=== PATIENT | female | born 2000 | race Two or more races ===

== ENCOUNTER 2024-07-18 16:29 | Emergency (ER) | payer OTHER ==
[~2024-07-18] VITALS: Ht 167.6 cm; Wt 98.1 kg
[2024-07-18 17:15] LABS: Basophils # (auto) 0.1 10 ^3/uL (0-0.2); Basophils % (auto) 0.5 % (0.0-2.0); Eosinophils # (auto) 0.3 10 ^3/uL (0-0.8); Eosinophils % (auto) 2.8 % (0.0-7.0); Hematocrit 41.8 % (36.0-46.0); Hemoglobin 14.4 g/dL (12.2-16.2); Lymphocytes # (auto) 2.8 10 ^3/uL (0.4-5.4); Lymphocytes % (auto) 24.9 % (10.0-50.0); Mean Corpuscular Hgb Conc. 34.4 g/dL (32.0-36.0); Monocytes # (auto) 0.8 10 ^3/uL (0-1.3); Monocytes % (auto) 6.9 % (0.0-12.0); Neutrophils # (auto) 7.3 10 ^3/uL (1.6-8.6); Neutrophils % (auto) 64.9 % (37.0-80.0); Nucleated Red Blood Cells % 0.1 %; Platelet Count (auto) 289 10^3/uL (140-450); Red Blood Cells 4.49 10^6/uL (4.0-5.20); Red Cell Distribution Width 12.3 % (11.8-14.3); White Blood Cell 11.2 10^3/uL (4.4-10.8)
[2024-07-18 17:26] LABS: Urine Bacteria FEW /hpf (None Seen); Urine Blood 3+ /uL (Negative); Urine Clarity Clear (Clear); Urine Color Yellow (Yellow); Urine Hyaline Cast FEW /lpf (0 - 2); Urine Mucus FEW (None Seen); Urine Protein, UAD TRACE (Negative); Urine Urobilinogen Normal (Negative); Urine WBC 5 /hpf (0 - 5); Urine pH 5.5 (5.0-9.0)
[2024-07-18 17:31] LABS: Alanine Aminotransferase 44 U/L (7-40); Albumin 4.9 g/dL (3.2-4.8); Alkaline Phosphatase 74 U/L (46-116); Anion Gap 8 (5-15); Aspartate Aminotransferase 23 U/L (13-40); BUN/Creatinine Ratio 10.1 (10.0-20.0); Bilirubin, Total 0.4 mg/dL (0.2-1.0); Blood Urea Nitrogen 8 mg/dL (9-23); Carbon Dioxide 24 mmol/L (20-31); Chloride 106 mmol/L (98-107); Glucose 79 mg/dL (74-106); Potassium 3.8 mmol/L (3.5-5.1); Sodium 138 mmol/L (136-145); Total Protein 7.9 g/dL (5.7-8.2)
[2024-07-18] MEDS ORDERED: CEPH500C PO (20:47)
[2024-07-18 20:53] VITALS: BP 130/81; PULSE 89; RESP 18; TEMP 97.5; O2SAT 98
== END 2024-07-18 21:01 | disposition home or self-care (01) ==
LOC: ER 16:29
DX: O20.9 Hemorrhage in early pregnancy, unspecified (principal); R10.2 Pelvic and perineal pain; O23.41 Unspecified infection of urinary tract in pregnancy, first trimester; N39.0 Urinary tract infection, site not specified; Z90.49 Acquired absence of other specified parts of digestive tract; Z3A.01 Less than 8 weeks gestation of pregnancy
CPT/HCPCS: 36415; 76801; 76817; 80053; 81001; 84484; 84702; 85025; 86850; 86900; 86901

== ENCOUNTER 2025-02-11 20:42 | Observation (INO) | payer OTHER ==
[~2025-02-11] VITALS: Ht 167.6 cm; Wt 104.3 kg
[~2025-02-11 20:42] MED LIST: CEPH500C PO
[2025-02-11] MEDS ORDERED: LACTATED RINGER'S 1,000 ML IV SCH (21:30)
[2025-02-11 21:47] LABS: Urine Bacteria FEW /hpf (None Seen); Urine Blood Negative /uL (Negative); Urine Budding Yeast OCCASIONAL /hpf (None Seen); Urine Clarity Clear (Clear); Urine Color Light-Yellow (Yellow); Urine Protein, UAD Negative (Negative); Urine Specific Gravity 1.012 (1.001-1.035); Urine Squamous Epithelial Cell FEW /hpf (<5); Urine Urobilinogen Normal (Negative); Urine WBC < 1 /HPF (0-5)
[2025-02-11 21:52] VITALS: TEMP 100.5
[2025-02-11] MEDS: ACETAMINOPHEN 325 MG TAB PO ONE (21:52)
[2025-02-11] MEDS: NIFEdipine 10 MG CAP PO ONE (21:58)
[2025-02-11] MEDS: LACTATED RINGER'S 1,000 ML IV ONE (21:58)
[2025-02-11] MEDS ORDERED: PREN-129 OR (22:03)
[2025-02-11 22:14] LABS: Basophils # (auto) 0 10 ^3/uL (0-0.2); Basophils % (auto) 0.1 % (0.0-2.0); Eosinophils # (auto) 0 10 ^3/uL (0-0.8); Eosinophils % (auto) 0.3 % (0.0-7.0); Hematocrit 35.3 % (36.0-46.0); Mean Corpuscular Hemoglobin 31.1 pg (28.0-32.0); Mean Corpuscular Hgb Conc. 33.9 g/dL (32.0-36.0); Mean Corpuscular Volume 91.8 fL (80.0-100.0); Monocytes # (auto) 0.8 10 ^3/uL (0-1.3); Monocytes % (auto) 6.1 % (0.0-12.0); Neutrophils % (auto) 86.5 % (37.0-80.0); Platelet Count (auto) 230 10^3/uL (140-450); Red Blood Cells 3.84 10^6/uL (4.0-5.20); Red Cell Distribution Width 12.6 % (11.8-14.3); White Blood Cell 13.9 10^3/uL (4.4-10.8)
[2025-02-11 22:24] LABS: Anion Gap 12 (5-15); Aspartate Aminotransferase 14 U/L (13-40); Calcium 9.6 mg/dL (8.7-10.4); Chloride 106 mmol/L (98-107); Glucose 92 mg/dL (74-106); Potassium 3.8 mmol/L (3.5-5.1); Sodium 138 mmol/L (136-145); Total Protein 6.8 g/dL (5.7-8.2)
[2025-02-11 22:25] LABS: Bilirubin, Total 0.5 mg/dL (0.2-1.0)
[2025-02-11 22:53] LABS: Amphetamine Screen, Urine Neg (NEGATIVE); Barbiturate Scree,Urine Neg (NEGATIVE); Benzodiazephine Screen, Urine Neg (NEGATIVE); Cannabinoid Screen, Urine Neg (NEGATIVE); Cocaine Screen, Urine Neg (NEGATIVE); Opiate Scree,Urine Neg (NEGATIVE); Phencyclidine Screen, Urine Neg (NEGATIVE)
[2025-02-11 22:54] LABS: Alanine Aminotransferase 9 U/L (7-40); Alkaline Phosphatase 143 U/L (46-116); Blood Urea Nitrogen < 5 mg/dL (9-23); Carbon Dioxide 20 mmol/L (20-31)
[2025-02-11 23:09] LABS: Vaginal Trichomonas Not Present
[2025-02-11 23:10] LABS: Vaginal Bacteria Few; Vaginal Clue Cells None Seen; Vaginal Epithelial Cells Few
[2025-02-11] MEDS: BETAMETHASONE ACET (30mg/5ml) 5ml Vial 6mg/ml IM ONE (23:25)
--- NOTE | 2025-02-11 23:36 | DVHDS2 ---
Physician Discharge Progress N Final Diagnosis: PTL Secondary Diagnosis: UTI mild right-sided hydronephrosis Problems List: (1) Hydronephrosis of right kidney (2) UTI in (3) labor in third trimester without delivery (4) Previous section Operations or Procedures: Operations or Procedures S: 24yo IUP@34.3wks presents to OB triage with c/o UCs/vaginal press ure/chest tightness. Denies LOF/VB/KILLIAN/vision changes/RUQ pain. Endorses +FM. PNC with Dr. Petty Emmanuel in [place], uncomplicated. Just moved here but plans on continuing care in [place]. Plans to have repeat C/S. OB Hx: #1 - P c/s for FTP #2 - current PMH: denies PSH: C/S and cholestectomy FMH: denies PSYCH: denies anxiety or depression O: VSS except maternal temp and tachycardia NST reactive (FHR tachycardic initially but was normal prior to D/C) TOCO: regular initially but after LR IV fluid bolus and procardia 30mg PO, no UCs noted on EFM and pt declines UCs. SVE attempted by RN but pt declined midway through exam, not imminent per RN. Pt declined second SVE by CNM. Tylenol PO given COVID/flu testing declined EKG declined (pt states chest tightness went away) Celestone declined No CVA tenderness bilaterally Blood culture collected Laboratory Tests Test 02/11/25 21:33 02/11/25 21:35 02/11/25 22:00 Range/Units White Blood Count 13.9 H 4.4-10.8 10^3/uL Red Blood Count 3.84 L 4.0-5.20 10^6/uL Hemoglobin 12.0 L 12.2-16.2 g/dL Hematocrit 35.3 L 36.0-46.0 % Mean Corpuscular Volume 91.8 80.0-100.0 fL Mean Corpuscular Hemoglobin 31.1 28.0-32.0 pg Mean Corpuscular Hemoglobin Concent 33.9 32.0-36.0 g/dL Red Cell Distribution Width 12.6 11.8-14.3 % Platelet Count 230 140-450 10^3/uL Mean Platelet Volume 7.9 6.9-10.8 fL Neutrophils (%) (Auto) 86.5 H 37.0-80.0 % Lymphocytes (%) (Auto) 7.0 L 10.0-50.0 % Monocytes (%) (Auto) 6.1 0.0-12.0 % Eosinophils (%) (Auto) 0.3 0.0-7.0 % Basophils (%) (Auto) 0.1 0.0-2.0 % Neutrophils # (Auto) 12.0 H 1.6-8.6 10 ^3/uL Lymphocytes # (Auto) 1.0 0.4-5.4 10 ^3/uL Monocytes # (Auto) 0.8 0-1.3 10 ^3/uL Eosinophils # (Auto) 0 0-0.8 10 ^3/uL Basophils # (Auto) 0 0-0.2 10 ^3/uL Nucleated Red Blood Cells 0.0 % Sodium Level 138 136-145 mmol/L Potassium Level 3.8 3.5-5.1 mmol/L Chloride Level 106 98-107 mmol/L Carbon Dioxide Level 20 20-31 mmol/L Anion Gap 12 5-15 Blood Urea Nitrogen < 5 L 9-23 mg/dL Creatinine 0.50 L 0.550-1.02 mg/dL Glomerular Filtration Rate Calc 133 >90 mL/min BUN/Creatinine Ratio 10.0 10.0-20.0 Serum Glucose 92 74-106 mg/dL Lactic Acid Level 1.4 0.4-2.0 mmol/L Calcium Level 9.6 8.7-10.4 mg/dL Total Bilirubin 0.5 0.2-1.0 mg/dL Aspartate Amino Transferase (AST) 14 13-40 U/L Alanine Aminotransferase (ALT) 9 7-40 U/L Alkaline Phosphatase 143 H 46-116 U/L Total Protein 6.8 5.7-8.2 g/dL Albumin 4.0 3.2-4.8 g/dL Urine Color Light-yellow Yellow Urine Clarity Clear Clear Urine pH 7.0 5.0-9.0 Urine Specific [place] 1.012 1.001-1.035 Urine Protein Negative Negative Urine Ketones 2+ H Negative Urine Blood Negative Negative /uL Urine Nitrite Negative Negative Urine Bilirubin Negative Negative Urine Urobilinogen Normal Negative mg/dL Urine Leukocyte Esterase Negative Negative /uL Urine RBC 1 0 - 4 /hpf Urine Microscopic WBC < 1 0-5 /HPF Urine Squamous Epithelial Cells Few <5 /hpf Urine Bacteria Few H None Seen /hpf Urine Yeast (Budding) Occasional None Seen /hpf Urine Glucose Normal Normal mg/dL Urine Opiates Screen Neg NEGATIVE Urine Fentanyl Screen Neg NEGATIVE Urine Barbiturates Screen Neg NEGATIVE Urine Phencyclidine Screen Neg NEGATIVE Urine Amphetamines Screen Neg NEGATIVE Urine Benzodiazepines Screen Neg NEGATIVE Urine Cocaine Screen Neg NEGATIVE Urine Cannabinoids Screen Neg NEGATIVE Vaginal WBC (Wet Prep) Rare Vaginal RBC (Wet Prep) None seen Vaginal Epithelial Cells (Wet Prep) Few Vaginal Bacteria (Wet Prep) Few Vaginal Trichomonas (Wet Prep) Not present Vaginal Yeast (Wet Prep) None seen Vaginal Clue Cells (Wet Prep) None seen Vital Signs Date Time Temp Pulse Resp B/P (MAP) Pulse Ox O2 Delivery O2 Flow Rate FiO2 02/11/25 21:58 132/61 02/11/25 21:52 100.5 A: 24yo IUP@34.3wks PTL UTI mild right-sided hydronephrosis P: D/C home Rx sent to pharmacy [facility]/PTL/preE precautions reviewed Dr. Vann consulted, agrees with POC Other Interventions Other Interventions [place] [address] Ph: [phone] DIAGNOSTIC IMAGING Diagnostic Imaging Report : [id number] Signed PATIENT: CORY DE LA TORRECCT: [id number] UNIT: [id number] : 2000 LOC: [facility] ROOM / BED: TRIAGE1 / A AGE / SEX: 24 / F ADM STATUS: ADM IN SERVICE 26 ORDERING PHYSICIAN: FLORENCIA KILGORE CNM PROCEDURE(s): OBUS - OB ULTRASOUND COMP GTR 14 WKS REASON: ABD PAIN ORDER NUMBER(s): [id number], ACCESSION NUMBER(s): [id number] LIMITED OB ULTRASOUND > 14 WKS: HISTORY: ABD PAIN TECHNIQUE: Multiple real-time grayscale images of the gravid uterus with duplex Doppler color flow and M-mode spectral analysis. Findings/ IMPRESSION: Single live intrauterine in cephalic position. The placenta is posterior grade 3. The cervix measures 3.6 cm and appears closed. Average ultrasound age 36 weeks 0 days with expected due date of March 11, 2025. Estimated weight of 2791 g. CHARY of 12.7 cm. heart rate of 178 beats per minute. Candy Puller notes good movement. ATED BY: JULIANNE JASSO DO DICTATED DATE/TIME: 02/12/2525 SIGNED BY: JULIANNE JASSO DO SIGNED DATE/TIME: 02/12/2525 CC: Consultations: Consultations [place] [address] Ph: [phone] DIAGNOSTIC IMAGING Diagnostic Imaging Report : [id number] Signed PATIENT: CORY DE LA TORRECCT: [id number] UNIT: [id number] : 2000 LOC: [facility] ROOM / BED: TRIAGE1 / A AGE / SEX: 24 / F ADM STATUS: ADM IN SERVICE 23 ORDERING PHYSICIAN: FLORENCIA KILGORE CNM PROCEDURE(s): ABDC - ABDOMEN COMPLETE SONOGRAM REASON: ABD PAIN ORDER NUMBER(s): [id number], ACCESSION NUMBER(s): [id number] INDICATION: ABD PAIN TECHNIQUE: Multiple real-time sonographic images of the abdomen were obtained. COMPARISON: None Findings/impression: The liver measures 15.6 cm craniocaudal with normal echotexture. Status post cholecystectomy. Pancreas not visualized. Right kidney measures 11.6 cm. There is mild right-sided hydronephrosis. Left kidney measures 12 cm. Spleen measures 13.9 cm. ATED BY: JULIANNE JASSO DO DICTATED DATE/TIME: 02/12/2526 SIGNED BY: JULIANNE JASSO DO SIGNED DATE/TIME: 02/12/2526 CC: Condition on Discharge: Stable Disposition: Home Discharge Instructions: Diet: Regular Activity: See Comment Activity comment: pelvic rest Medications: see med list Follow Up Care: Specialist: f/u with primary OB scheduled on 02/19/25 Discharge Statement: "Patient was advised to return to the ER or call 911 if any headaches, dizziness, shortness of breath, chest pain, abdominal pain, bleeding, fevers, or worsening of medical condition. Patient was counseled about treatment plan, medications, possible side effects, patientverbalized understanding. All questions were answered to the best of my ability. This discharge took greater then 30 minutes in planning, reviewing documentatio n, counseling the patient, and discussing with other team members." Visit Coding OBGYN Date of Service: February 11, 2025 Billing Provider: FLORENCIA KILGORE CNM MARKETING SYSTEMS MANAGER Common Visit Codes: [id number] OBS CARE (HIGH) FLORENCIA KILGORE CNM February 11, 2025 23:36
[2025-02-12] MEDS ORDERED: CEPH500C PO (00:07)
[2025-02-12] MEDS ORDERED: NIFE10CA52 PO (00:07)
--- NOTE | 2025-02-12 00:28 | DVH ---
LIMITED OB ULTRASOUND > 14 WKS: HISTORY: ABD PAIN TECHNIQUE: Multiple real-time grayscale images of the gravid uterus with duplex Doppler color flow an d M-mode spectral analysis. Findings/ IMPRESSION: Single live intrauterine in cephalic position. The placenta is posterior grade 3. The cerv ix measures 3.6 cm and appears closed. Average ultrasound age 36 weeks 0 days with expected due date of March 11, 2025. Estimated weight of 2791 g. CHARY of 12.7 cm. heart rate of 178 beats p er minute. Electrical Development Engineer notes good movement.
--- NOTE | 2025-02-12 00:29 | DVH ---
INDICATION: ABD PAIN TECHNIQUE: Multiple real-time sonographic images of the abdomen were obtained. COMPARISON: None Findings/impression: The liver measures 15.6 cm craniocaudal with normal echotexture. Status post cho lecystectomy. Pancreas not visualized. Right kidney measures 11.6 cm. There is mild right-sided hydr onephrosis. Left kidney measures 12 cm. Spleen measures 13.9 cm.
== END 2025-02-12 00:32 | disposition home or self-care (01) ==
LOC: LDRP 20:42
PROVIDERS: ADMIT Obstetrics & Gynecology; ATTEND Obstetrics & Gynecology
DX: O60.03 Preterm labor without delivery, third trimester (principal); O23.43 Unspecified infection of urinary tract in pregnancy, third trimester; O99.283 Endocrine, nutritional and metabolic diseases complicating pregnancy, third trimester; E03.9 Hypothyroidism, unspecified; O99.891 Other specified diseases and conditions complicating pregnancy; N13.30 Unspecified hydronephrosis; Z3A.34 34 weeks gestation of pregnancy; Z79.899 Other long term (current) drug therapy; Z98.891 History of uterine scar from previous surgery
CPT/HCPCS: 36415; 59025; 76817; 80053; 80307; 81001; 81002; 83605; 85025; 87040; 87210; 96360; 96361; J0702; 76700; 76805